=== PATIENT | female | born 1990 | race Hispanic/Latino ===

== ENCOUNTER 2017-08-29 11:45 | Emergency (ER) | payer SELFPAY | END 2017-08-29 13:17 | disposition home or self-care (01) | LOC: ERS 11:45 | DX: J06.9 Acute upper respiratory infection, unspecified (principal); E28.2 Polycystic ovarian syndrome | CPT/HCPCS: 87804; 99283 ==

== ENCOUNTER 2019-07-07 07:44 | Emergency (ER) | payer SELFPAY ==
[2019-07-07 08:26] LABS: Pregnancy Test - Urine (BHCG) Negative (Negative)
[2019-07-07 08:27] LABS: Pregu Control Background? CLEAR/WHITE (CLR/WHITE); Pregu Control Bar Appear? YES (CONTROL BAR); Specific Gravity 1.031 (1.002-1.036)
[2019-07-07 08:38] LABS: Bilirubin Negative (Negative); Blood, Urine 1+ (Negative); Clarity Turbid (Clear); Glucose, Urine (Dipstick) Normal (Negative); Leukocyte Negative Leu/uL (Negative); Nitrite Negative (Negative); Protein, Urine (Dipstick) 20 mg/dL (Neg-Trace); Urobilinogen Normal mg/dL (Less than 2); WBC/HPF 0-3 HPF (0-3)
[2019-07-07 08:41] LABS: Bacteria/HPF 1+ HPF (None Seen)
[2019-07-07] MEDS ORDERED: Ketorolac Tromethamine 30 MG/ML VIAL ONE (08:54)
== END 2019-07-07 09:08 | disposition home or self-care (01) ==
LOC: ERS 07:44
DX: M54.5 Low back pain (principal)
CPT/HCPCS: 81003; 81015; 81025; 96372; 99283; J1885

== ENCOUNTER 2019-07-10 12:54 | Emergency (ER) | payer BC, SELFPAY ==
[2019-07-10 13:34] LABS: Bilirubin Negative (Negative); Blood, Urine Negative (Negative); Clarity Clear (Clear); Glucose, Urine (Dipstick) Normal (Negative); Leukocyte Negative Leu/uL (Negative); Nitrite Negative (Negative); Protein, Urine (Dipstick) Negative (Neg-Trace); Urobilinogen Normal mg/dL (Less than 2)
[2019-07-10] MEDS ORDERED: Ketorolac Tromethamine 30 MG/ML VIAL ONE (13:35)
[2019-07-10 13:36] LABS: Pregnancy Test - Urine (BHCG) Negative (Negative); Specific Gravity 1.021 (1.002-1.036)
[2019-07-10 13:37] LABS: Pregu Control Background? CLEAR/WHITE (CLR/WHITE); Pregu Control Bar Appear? YES (CONTROL BAR)
== END 2019-07-10 13:56 | disposition home or self-care (01) ==
LOC: ERS 12:54
DX: M54.5 Low back pain (principal)
CPT/HCPCS: 81003; 81025; 96372; 99283; J1885